=== PATIENT | male | born 1990 | race Caucasian/White ===

== ENCOUNTER 2018-12-25 15:03 | Emergency (ER) | payer SELFPAY ==
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
[2018-12-25] MEDS ORDERED: KETOROLAC 15 MG/ML VIAL. IM ONE (15:45)
--- NOTE | 2018-12-25 16:08 | RAD ---
THORACIC SPINE 3V History: Pain. Tingling right hand. Technique: 3 views thoracic spine. Comparison: None. Findings: Normal vertebral body height and alignment. No fracture. Disc spaces are well-maintained. Impression: 1. No acute osseous abnormality. Electronically signed by: Young Hussein DO (12/25/2018 4:05 PM) [id number]
[2018-12-25] MEDS ORDERED: MELO7.5T29 PO (16:10)
[2018-12-25] MEDS ORDERED: PRED50TA PO (16:10)
[2018-12-25 16:45] VITALS: BP 134/87
== END 2018-12-25 16:47 | disposition home or self-care (01) ==
LOC: ER 15:03
DX: M54.6 Pain in thoracic spine (principal); F17.210 Nicotine dependence, cigarettes, uncomplicated; Z98.890 Other specified postprocedural states
CPT/HCPCS: 72072; 96372; 99284; J1885